=== PATIENT | male | born 1955 | race Caucasian/White ===

== ENCOUNTER 2017-07-02 00:50 | Inpatient (IN) | payer BC ==
[2017-07-02] VITALS (21 sets, daily range): BP systolic 100–138; BP diastolic 55–94
[~2017-07-02] VITALS: Ht 185.4 cm; Wt 123.6 kg
[2017-07-02] MEDS ORDERED: nitroGLYCERIN 0.4mg/hour patch TD ONE (02:50)
[2017-07-02] MEDS ORDERED: normal saline 1000ml 1,000 ML IV SCH ×2 (03:39→09:55)
[2017-07-02] MEDS ORDERED: HYDROcodone/acetaminophen 5mg/325mg tablet PO PRN (03:40)
[2017-07-02] MEDS ORDERED: ondansetron/PF 4mg/2ml inj IV PRN (03:40)
[2017-07-02] MEDS ORDERED: bisacodyl 10mg suppository rectal RC PRN (03:40)
[2017-07-02] MEDS ORDERED: magnesium hydroxide 30ml (MOM) UD suspension PO PRN (03:40)
[2017-07-02] MEDS ORDERED: diphenhydrAMINE 50 mg/ml inj IV PRN (03:40)
[2017-07-02] MEDS ORDERED: metoclopramide 5 mg/ml inj IV PRN (03:40)
[2017-07-02] MEDS ORDERED: acetaminophen 325mg tablet PO PRN (03:40)
[2017-07-02] MEDS ORDERED: diphenhydrAMINE 25mg capsule PO PRN (03:40)
[2017-07-02] MEDS ORDERED: mag hydrox/Alum hydrox/simeth 30ml oral suspension PO PRN (03:40)
[2017-07-02] MEDS ORDERED: SILD50TA PO (03:45)
[2017-07-02] MEDS ORDERED: FLUT16SP2 BOTHNARES (03:45)
[2017-07-02] MEDS ORDERED: nitroGLYCERIN 0.4mg SUBLingual tab SL PRN (03:45)
[2017-07-02] MEDS ORDERED: metoprolol tartrate 1mg/ml inj IV PRN (03:45)
[2017-07-02] MEDS ORDERED: regadenoson 0.4mg/5ml syringe IV ONE (03:45)
[2017-07-02] MEDS ORDERED: aminophylline 250mg/10ml inj. IV PRN (03:45)
[2017-07-02 04:11] LABS: ALANINE AMINOTRANSFERASE 49 U/L (12-78); ALBUMIN 3.5 G/DL (3.4-5.0); ALKALINE PHOSPHATASE 100 IU/L (46-116); ANION GAP 8 (8-16); ASPARTATE AMINO TRANSFERASE 84 U/L (10-37); BILIRUBIN,TOTAL 0.3 MG/DL (0.1-1.0); BLOOD UREA NITROGEN 18 MG/DL (7-18); BUN/CREATININE RATIO 11.5 (5.4-32.0); CALCIUM 8.7 MG/DL (8.5-10.1); CHLORIDE 107 MMOL/L (99-107); CREATININE 1.56 MG/DL (0.60-1.10); GLUCOSE 114 MG/DL (70-104); POTASSIUM 4.5 MMOL/L (3.5-5.1); SODIUM 141 MMOL/L (135-145); TOTAL CARBON DIOXIDE 25.7 MMOL/L (24-32); TOTAL PROTEIN 6.9 G/DL (6.4-8.2); eGFR 45 ML/MIN
[2017-07-02 04:22] LABS: LIPASE 202 U/L (73-393); MAGNESIUM 1.9 MG/DL (1.5-2.4)
[2017-07-02 04:27] LABS: TROPONIN I 9.71 NG/ML (0.0-0.05)
[2017-07-02 06:11] LABS: BASOPHILS # (AUTO) 0.1 X10'3 (0-0.2); BASOPHILS % (AUTO) 0.9 % (0-1); EOSINOPHILS # (AUTO) 0.2 X10'3 (0-0.9); EOSINOPHILS % (AUTO) 2.4 % (0-6); HEMATOCRIT 43.7 % (42.0-52.0); HEMOGLOBIN 14.7 g/dl (14.0-17.9); LYMPHOCYTES % (AUTO) 20.4 % (21-51); MEAN CORPUSCULAR HEMOGLOBIN 30.4 PG (27.0-31.0); MEAN CORPUSCULAR HGB CONC 33.7 % (33.0-36.5); MEAN CORPUSCULAR VOLUME 90.3 FL (78-98); MEAN PLATELET VOLUME 8.4 FL (7.4-10.4); MONOCYTES # (AUTO) 0.7 X10'3 (0-0.9); MONOCYTES % (AUTO) 7.4 % (2-12); NEUTROPHILS # (AUTO) 6.8 X10'3 (1.8-7.7); NEUTROPHILS % (AUTO) 68.9 % (42-75); PLATELET COUNT 217 X10'3 (140-440); RED BLOOD COUNT 4.84 X10'6 (4.70-6.10); RED CELL DISTRIBUTION WIDTH 13.4 % (11.5-14.5); WHITE BLOOD COUNT 9.9 X10'3 (4.5-11.0)
[2017-07-02 06:22] LABS: D-DIMER 0.34 MG/L FEU (0-0.50); PARTIAL THROMBOPLASTIN TIME 32 SECONDS (22-32)
[2017-07-02] MEDS ORDERED: enoxaparin 60mg/0.6ml syringe SUBCUT SCH (08:30)
[2017-07-02] MEDS: nitroGLYCERIN 0.2mg/hour patch TD SCH (08:49)
[2017-07-02] MEDS: pantoprazole 40mg Tablet.DR PO SCH (08:49)
[2017-07-02] MEDS: aspirin 325mg tablet PO SCH (08:50)
[2017-07-02] MEDS: docusate sod 100mg capsule PO SCH ×2 (08:50→20:00)
[2017-07-02] MEDS: metoprolol tartrate 25mg tablet PO SCH ×2 (09:55→20:00)
[2017-07-02] MEDS: acetaminophen 325mg tablet PO PRN (10:46)
[2017-07-02 11:04] LABS: CLARITY,URINE Clear (Clear); COLOR,URINE Yellow (Yellow); GLUCOSE, URINE Negative (Neg); KETONES,URINE Negative (Neg); LEUKOCYTE ESTERASE ,URINE Negative (Neg); NITRITES, URINE Negative (Neg); OCCULT BLOOD,URINE Negative (Neg); PROTEIN,URINE Trace mg/dl (Neg)
[2017-07-02 11:13] LABS: RBC,URINE NONE SEEN /HPF (0-2); UA COLLECTION TYPE CLN CATCH MIDSTREAM; WBC,URINE NONE SEEN /HPF (0-4)
[2017-07-02 11:14] LABS: BACTERIA,URINE NONE SEEN /HPF (Neg); MUCUS STRANDS NONE SEEN /LPF (Neg); SQUAMOUS EPITHELIAL CELL,UR NONE SEEN /LPF (FEW)
[2017-07-02] MEDS ORDERED: LIDOcaine 2 gm/250ml D5W 250 ML IV SCH (11:15)
[2017-07-02 11:22] LABS: URINE AMPHETAMINE SCREEN NEGATIVE (Neg); URINE BARBITUATE SCREEN NEGATIVE (Neg); URINE BENZODIAZEPINES SCREEN NEGATIVE (Neg); URINE CANNABINOID SCREEN POSITIVE (Neg); URINE COCAINE SCREEN NEGATIVE (Neg); URINE METHADONE SCREEN NEGATIVE (Neg); URINE OPIATE SCREEN POSITIVE (Neg); URINE PHENCYCLIDINE SCREEN NEGATIVE (Neg)
[2017-07-02] MEDS: HYDROcodone/acetaminophen 10/325mg tab PO PRN ×2 (14:44→20:26)
[2017-07-02] MEDS ORDERED: IOHEXOL 350 MG/ML 150 ML injection IV ONE (14:46)
[2017-07-02] MEDS ORDERED: iohexol 350 MG/ML 50ML vial IV ONE (14:46)
[2017-07-02] MEDS ORDERED: LIDOcaine 1%/PF (10mg/ml) 5ml vial ONE (14:46)
[2017-07-02] MEDS ORDERED: heparin 1,000unit/ml 10ml vial 10 ML ONE (14:46)
[2017-07-02] MEDS ORDERED: fentaNYL/PF 50MCG/1 ML 2ML syringe ONE (15:05)
[2017-07-02] MEDS ORDERED: diphenhydrAMINE 50 mg/ml inj ONE (15:05)
[2017-07-02] MEDS ORDERED: midazolam 2 mg/2 ml injection ONE ×2 (15:06→15:40)
[2017-07-02] MEDS ORDERED: tirofiban 5mg in NS 100mL 100 ML IV ONE (15:49)
[2017-07-02] MEDS: normal saline 1000ml 1,000 ML IV SCH ×2 (17:00→19:28)
[2017-07-02] MEDS ORDERED: OXAZEpam 15mg capsule PO PRN (17:05)
[2017-07-02] MEDS ORDERED: proCHLORperazine 10 MG/2 ml inj IV PRN (17:05)
[2017-07-02] MEDS ORDERED: metoprolol tartrate 25mg tablet PO SCH (20:00)
[2017-07-02] MEDS ORDERED: temazepam 15mg capsule PO PRN (21:00)
[2017-07-03] VITALS (12 sets, daily range): BP systolic 96–130; BP diastolic 54–78
[2017-07-03 06:09] LABS: BASOPHILS % (AUTO) 0.3 % (0-1); EOSINOPHILS # (AUTO) 0.2 X10'3 (0-0.9); EOSINOPHILS % (AUTO) 2.4 % (0-6); HEMATOCRIT 42.9 % (42.0-52.0); HEMOGLOBIN 14.5 g/dl (14.0-17.9); LYMPHOCYTES # (AUTO) 1.3 X10'3 (1.1-4.8); LYMPHOCYTES % (AUTO) 13.9 % (21-51); MEAN CORPUSCULAR HEMOGLOBIN 30.1 PG (27.0-31.0); MEAN CORPUSCULAR HGB CONC 33.7 % (33.0-36.5); MEAN CORPUSCULAR VOLUME 89.4 FL (78-98); MEAN PLATELET VOLUME 8.6 FL (7.4-10.4); MONOCYTES # (AUTO) 0.8 X10'3 (0-0.9); MONOCYTES % (AUTO) 8.1 % (2-12); NEUTROPHILS # (AUTO) 6.9 X10'3 (1.8-7.7); NEUTROPHILS % (AUTO) 75.3 % (42-75); PLATELET COUNT 207 X10'3 (140-440); RED CELL DISTRIBUTION WIDTH 13.5 % (11.5-14.5); WHITE BLOOD COUNT 9.2 X10'3 (4.5-11.0)
[2017-07-03 06:37] LABS: ALANINE AMINOTRANSFERASE 47 U/L (12-78); ALBUMIN 3.2 G/DL (3.4-5.0); ALKALINE PHOSPHATASE 89 IU/L (46-116); ANION GAP 7 (8-16); ASPARTATE AMINO TRANSFERASE 83 U/L (10-37); BILIRUBIN,TOTAL 0.6 MG/DL (0.1-1.0); BLOOD UREA NITROGEN 19 MG/DL (7-18); BUN/CREATININE RATIO 12.8 (5.4-32.0); CALCIUM 8.6 MG/DL (8.5-10.1); CHLORIDE 106 MMOL/L (99-107); CHOL/HDL RATIO 3.7 (0.00-4.99); CHOLESTEROL 119 MG/DL (0-200); CREATININE 1.48 MG/DL (0.60-1.10); GLUCOSE 118 MG/DL (70-104); HDL CHOLESTEROL 32 MG/DL (35-60); LDL CHOLESTEROL 68 MG/DL (50-100); POTASSIUM 4.3 MMOL/L (3.5-5.1); SODIUM 139 MMOL/L (135-145); TOTAL CARBON DIOXIDE 26.1 MMOL/L (24-32); TOTAL PROTEIN 6.5 G/DL (6.4-8.2); TRIGLYCERIDES 183 MG/DL (20-135); eGFR 48 ML/MIN
[2017-07-03] MEDS: docusate sod 100mg capsule PO SCH ×2 (08:00→20:00)
[2017-07-03] MEDS: nitroGLYCERIN 0.2mg/hour patch TD SCH (08:00)
[2017-07-03] MEDS: aspirin 325mg tablet PO SCH (08:10)
[2017-07-03] MEDS: pantoprazole 40mg Tablet.DR PO SCH (08:10)
[2017-07-03] MEDS: metoprolol tartrate 25mg tablet PO SCH ×2 (08:10→20:09)
[2017-07-03] MEDS: enoxaparin 40mg/0.4ml syringe SQ SCH (08:11)
[2017-07-03] MEDS: atorvastatin 20mg tablet PO SCH (11:24)
[2017-07-03 13:10] LABS: TRIIODOTHYRONINE (T3) 134 ng/dL (71-180)
[2017-07-03] MEDS: acetaminophen 325mg tablet PO PRN (20:09)
[2017-07-04 03:00] VITALS: BP 119/70
[2017-07-04 05:47] LABS: BASOPHILS % (AUTO) 0.3 % (0-1); EOSINOPHILS # (AUTO) 0.2 X10'3 (0-0.9); EOSINOPHILS % (AUTO) 2.1 % (0-6); HEMATOCRIT 45.9 % (42.0-52.0); HEMOGLOBIN 15.2 g/dl (14.0-17.9); LYMPHOCYTES # (AUTO) 1.5 X10'3 (1.1-4.8); LYMPHOCYTES % (AUTO) 15.5 % (21-51); MEAN CORPUSCULAR HEMOGLOBIN 29.6 PG (27.0-31.0); MEAN CORPUSCULAR HGB CONC 33.1 % (33.0-36.5); MEAN CORPUSCULAR VOLUME 89.7 FL (78-98); MEAN PLATELET VOLUME 8.4 FL (7.4-10.4); MONOCYTES # (AUTO) 0.9 X10'3 (0-0.9); MONOCYTES % (AUTO) 8.7 % (2-12); NEUTROPHILS # (AUTO) 7.3 X10'3 (1.8-7.7); NEUTROPHILS % (AUTO) 73.4 % (42-75); PLATELET COUNT 190 X10'3 (140-440); RED BLOOD COUNT 5.12 X10'6 (4.70-6.10); RED CELL DISTRIBUTION WIDTH 13.3 % (11.5-14.5); WHITE BLOOD COUNT 9.9 X10'3 (4.5-11.0)
[2017-07-04 06:00] VITALS: BP 113/71
[2017-07-04 06:15] LABS: ALANINE AMINOTRANSFERASE 41 U/L (12-78); ALBUMIN 3.3 G/DL (3.4-5.0); ALBUMIN/GLOBULIN RATIO 0.9 (1.1-1.5); ALKALINE PHOSPHATASE 91 IU/L (46-116); ANION GAP 7 (8-16); ASPARTATE AMINO TRANSFERASE 51 U/L (10-37); BILIRUBIN,TOTAL 0.9 MG/DL (0.1-1.0); BLOOD UREA NITROGEN 21 MG/DL (7-18); CHLORIDE 105 MMOL/L (99-107); GLUCOSE 119 MG/DL (70-104); SODIUM 140 MMOL/L (135-145); TOTAL CARBON DIOXIDE 27.7 MMOL/L (24-32); TOTAL PROTEIN 7.1 G/DL (6.4-8.2); eGFR 47 ML/MIN
[2017-07-04] MEDS: docusate sod 100mg capsule PO SCH ×2 (08:00→18:21)
[2017-07-04] MEDS: metoprolol tartrate 25mg tablet PO SCH ×2 (08:14→19:41)
[2017-07-04] MEDS: pantoprazole 40mg Tablet.DR PO SCH (08:15)
[2017-07-04] MEDS: aspirin 325mg tablet PO SCH (08:15)
[2017-07-04] MEDS: atorvastatin 20mg tablet PO SCH (08:15)
[2017-07-04] MEDS: enoxaparin 40mg/0.4ml syringe SQ SCH (08:16)
[2017-07-04 11:00] VITALS: BP 117/74
[2017-07-04 15:00] VITALS: BP 121/73
[2017-07-04] MEDS ORDERED: amLODIPine 2.5mg tablet PO ONE (16:00)
[2017-07-04 19:00] VITALS: BP 135/78
[2017-07-04 23:16] VITALS: BP 120/80
[2017-07-05 03:01] VITALS: BP 102/65
[2017-07-05 05:20] LABS: BASOPHILS % (AUTO) 0.4 % (0-1); EOSINOPHILS # (AUTO) 0.3 X10'3 (0-0.9); EOSINOPHILS % (AUTO) 2.7 % (0-6); HEMATOCRIT 45.1 % (42.0-52.0); HEMOGLOBIN 15.1 g/dl (14.0-17.9); LYMPHOCYTES # (AUTO) 1.6 X10'3 (1.1-4.8); LYMPHOCYTES % (AUTO) 15.9 % (21-51); MEAN CORPUSCULAR HEMOGLOBIN 29.7 PG (27.0-31.0); MEAN CORPUSCULAR HGB CONC 33.5 % (33.0-36.5); MEAN CORPUSCULAR VOLUME 88.7 FL (78-98); MEAN PLATELET VOLUME 8.6 FL (7.4-10.4); MONOCYTES % (AUTO) 9.2 % (2-12); NEUTROPHILS # (AUTO) 7.4 X10'3 (1.8-7.7); NEUTROPHILS % (AUTO) 71.8 % (42-75); PLATELET COUNT 193 X10'3 (140-440); RED BLOOD COUNT 5.08 X10'6 (4.70-6.10); RED CELL DISTRIBUTION WIDTH 13.2 % (11.5-14.5); WHITE BLOOD COUNT 10.3 X10'3 (4.5-11.0)
[2017-07-05 05:47] LABS: ALANINE AMINOTRANSFERASE 55 U/L (12-78); ALBUMIN 3.4 G/DL (3.4-5.0); ALBUMIN/GLOBULIN RATIO 0.9 (1.1-1.5); ALKALINE PHOSPHATASE 96 IU/L (46-116); ANION GAP 11 (8-16); ASPARTATE AMINO TRANSFERASE 42 U/L (10-37); BILIRUBIN,TOTAL 0.7 MG/DL (0.1-1.0); BLOOD UREA NITROGEN 30 MG/DL (7-18); BUN/CREATININE RATIO 19.7 (5.4-32.0); CALCIUM 9.2 MG/DL (8.5-10.1); CHLORIDE 104 MMOL/L (99-107); CREATININE 1.52 MG/DL (0.60-1.10); GLUCOSE 117 MG/DL (70-104); SODIUM 140 MMOL/L (135-145); TOTAL CARBON DIOXIDE 25.5 MMOL/L (24-32); TOTAL PROTEIN 7.3 G/DL (6.4-8.2); eGFR 47 ML/MIN
[2017-07-05 06:00] VITALS: BP 116/71
[2017-07-05] MEDS: metoprolol tartrate 25mg tablet PO SCH (07:34)
[2017-07-05] MEDS: pantoprazole 40mg Tablet.DR PO SCH (07:34)
[2017-07-05] MEDS: atorvastatin 20mg tablet PO SCH (07:34)
[2017-07-05] MEDS: docusate sod 100mg capsule PO SCH (07:34)
[2017-07-05] MEDS: enoxaparin 40mg/0.4ml syringe SQ SCH (07:35)
[2017-07-05] MEDS: aspirin 325mg tablet PO SCH (07:35)
[2017-07-05] MEDS ORDERED: amLODIPine 2.5mg tablet PO SCH (08:00)
[2017-07-05 11:00] VITALS: BP 125/80
[2017-07-05] MEDS ORDERED: METO25TA6 PO (13:01)
[2017-07-05] MEDS ORDERED: NITR0.4T51 SL (13:01)
[2017-07-05] MEDS ORDERED: PANT40TA4 PO (13:01)
[2017-07-05] MEDS ORDERED: ATOR20TA66 PO (13:01)
[2017-07-05] MEDS ORDERED: ASPI-611 PO (13:01)
[2017-07-05] MEDS ORDERED: LISI-604 PO (13:01)
== END 2017-07-05 14:35 | disposition home or self-care (01) | DRG 281 ==
LOC: PCU 3S 00:50
PROVIDERS: ADMIT Family Medicine; ATTEND Family Medicine
PROC: 4A023N7 Measurement of Cardiac Sampling and Pressure, Left Heart, Percutaneous Approach (ICD-10-PCS; principal; 2017-07-04)
PROC: B2111ZZ Fluoroscopy of Multiple Coronary Arteries using Low Osmolar Contrast (ICD-10-PCS; 2017-07-04)
PROC: B2151ZZ Fluoroscopy of Left Heart using Low Osmolar Contrast (ICD-10-PCS; 2017-07-04)
PROC: B41J1ZZ Fluoroscopy of Other Lower Arteries using Low Osmolar Contrast (ICD-10-PCS; 2017-07-04)
PROC: 02JA3ZZ Inspection of Heart, Percutaneous Approach (ICD-10-PCS; 2017-07-04)
DX: I21.4 Non-ST elevation (NSTEMI) myocardial infarction (principal); I47.2 Ventricular tachycardia; E03.9 Hypothyroidism, unspecified; I10 Essential (primary) hypertension; E66.9 Obesity, unspecified; E78.5 Hyperlipidemia, unspecified; G47.33 Obstructive sleep apnea (adult) (pediatric); I12.9 Hypertensive chronic kidney disease with stage 1 through stage 4 chronic kidney disease, or unspecified chronic kidney disease; I25.119 Atherosclerotic heart disease of native coronary artery with unspecified angina pectoris; I25.5 Ischemic cardiomyopathy; N18.9 Chronic kidney disease, unspecified; Z88.1 Allergy status to other antibiotic agents; Z88.6 Allergy status to analgesic agent; Z79.899 Other long term (current) drug therapy; Z68.36 Body mass index [BMI] 36.0-36.9, adult; Z82.49 Family history of ischemic heart disease and other diseases of the circulatory system
CPT/HCPCS: 36415; 80053; 80061; 80305; 81001; 83690; 83735; 83880; 84439; 84443; 84479; 84480; 84484; 85025; 85379; 85610; 85730; 87070; 93005; 93458; 99152; 99153; A4620; A6257; C1760; C1769; J0280; J1200; J1644; J1650; J2001; J2250; J2270; J2785; J3010; J3246; J7030; Q9967

== ENCOUNTER 2018-03-02 09:46 | Day surgery (SDC) | payer BC ==
[2018-02-25 13:59] LABS: BASOPHILS # (AUTO) 0.1 X10'3 (0-0.2); BASOPHILS % (AUTO) 1.2 % (0-1); EOSINOPHILS # (AUTO) 0.3 X10'3 (0-0.9); EOSINOPHILS % (AUTO) 3.4 % (0-6); HEMATOCRIT 42.3 % (42.0-52.0); HEMOGLOBIN 14.2 g/dl (14.0-17.9); LYMPHOCYTES # (AUTO) 1.5 X10'3 (1.1-4.8); LYMPHOCYTES % (AUTO) 17.8 % (21-51); MEAN CORPUSCULAR HEMOGLOBIN 29.9 PG (27.0-31.0); MEAN CORPUSCULAR HGB CONC 33.6 % (33.0-36.5); MEAN CORPUSCULAR VOLUME 89.1 FL (78-98); MEAN PLATELET VOLUME 8.1 FL (7.4-10.4); MONOCYTES # (AUTO) 0.7 X10'3 (0-0.9); NEUTROPHILS # (AUTO) 5.8 X10'3 (1.8-7.7); NEUTROPHILS % (AUTO) 69.6 % (42-75); PLATELET COUNT 216 X10'3 (140-440); RED BLOOD COUNT 4.75 X10'6 (4.70-6.10); RED CELL DISTRIBUTION WIDTH 13.4 % (11.5-14.5); WHITE BLOOD COUNT 8.3 X10'3 (4.5-11.0)
[2018-02-25 14:10] LABS: PARTIAL THROMBOPLASTIN TIME 26 SECONDS (22-32); PROTHROMBIN TIME 10.1 SECONDS (9.0-12.0)
[2018-02-25 14:15] LABS: ALANINE AMINOTRANSFERASE 28 U/L (12-78); ALBUMIN 3.5 G/DL (3.4-5.0); ALKALINE PHOSPHATASE 138 IU/L (46-116); ANION GAP 7 (8-16); ASPARTATE AMINO TRANSFERASE 14 U/L (10-37); BILIRUBIN,TOTAL 0.5 MG/DL (0.1-1.0); BLOOD UREA NITROGEN 19 MG/DL (7-18); BUN/CREATININE RATIO 11.7 (5.4-32.0); CALCIUM 9.1 MG/DL (8.5-10.1); CHLORIDE 107 MMOL/L (99-107); CREATININE 1.63 MG/DL (0.60-1.10); GLUCOSE 153 MG/DL (70-104); POTASSIUM 4.4 MMOL/L (3.5-5.1); SODIUM 143 MMOL/L (135-145); TOTAL CARBON DIOXIDE 28.6 MMOL/L (24-32); TOTAL PROTEIN 7.1 G/DL (6.4-8.2); eGFR 43 ML/MIN
[2018-03-02] VITALS (13 sets, daily range): BP systolic 104–136; BP diastolic 57–76
[~2018-03-02] VITALS: Ht 182.9 cm; Wt 127.6 kg
[~2018-03-02 09:46] MED LIST: ATOR20TA66 PO; FLUT16SP2 BOTHNARES; LISI-604 PO; METO25TA6 PO; NITR0.4T51 SL; PANT40TA4 PO; SILD50TA PO
[2018-03-02] MEDS ORDERED: midazolam 2 mg/2 ml injection ONE (09:55)
[2018-03-02] MEDS ORDERED: iohexol 350 MG/ML 50ML vial IV ONE (09:56)
[2018-03-02] MEDS ORDERED: fentaNYL/PF 50MCG/1 ML 2ML syringe ONE ×2 (09:56→10:51)
[2018-03-02] MEDS ORDERED: iohexol 350MG/ML 100ml bottle IV ONE (09:56)
[2018-03-02] MEDS ORDERED: LIDOcaine 1% 30ml preserv. free vial ONE (09:56)
[2018-03-02] MEDS ORDERED: nitroGLYCERIN 0.4mg SUBLingual tab SL PRN (10:00)
[2018-03-02] MEDS ORDERED: diphenhydrAMINE 25mg capsule PO PRN (10:00)
[2018-03-02] MEDS ORDERED: LORazepam 0.5 MG tablet PO PRN (10:00)
[2018-03-02] MEDS ORDERED: TICA90TA PO (10:07)
[2018-03-02] MEDS ORDERED: ASPI81TA52 PO (10:07)
[2018-03-02] MEDS ORDERED: PANT-47 PO (10:07)
[2018-03-02] MEDS ORDERED: METO25TA6 PO (10:07)
[2018-03-02] MEDS ORDERED: NITR0.4T51 SL (10:07)
[2018-03-02] MEDS ORDERED: ATOR20TA PO (10:07)
[2018-03-02] MEDS ORDERED: LISI40TA4 PO (10:07)
[2018-03-02] MEDS: normal saline 1000ml 1,000 ML IV SCH ×2 (10:26→13:51)
[2018-03-02] MEDS ORDERED: OXAZEpam 15mg capsule PO PRN (11:35)
[2018-03-02] MEDS ORDERED: HYDROcodone/acetaminophen 10/325mg tab PO PRN (11:35)
[2018-03-02] MEDS ORDERED: ondansetron/PF 4mg/2ml inj IV PRN (11:35)
[2018-03-02] MEDS ORDERED: HYDROcodone/acetaminophen 5mg/325mg tablet PO PRN (11:35)
[2018-03-02] MEDS ORDERED: normal saline 1000ml 1,000 ML IV SCH (11:35)
[2018-03-02] MEDS ORDERED: proCHLORperazine 10 MG/2 ml inj IV PRN (11:35)
== END 2018-03-02 19:15 | disposition home or self-care (01) ==
LOC: SSTAY O 09:46
PROVIDERS: ATTEND Internal Medicine Cardiovascular Disease
DX: I25.10 Atherosclerotic heart disease of native coronary artery without angina pectoris (principal); E78.5 Hyperlipidemia, unspecified; I25.2 Old myocardial infarction; I12.9 Hypertensive chronic kidney disease with stage 1 through stage 4 chronic kidney disease, or unspecified chronic kidney disease; N18.3 Chronic kidney disease, stage 3 (moderate); N40.0 Benign prostatic hyperplasia without lower urinary tract symptoms; G47.33 Obstructive sleep apnea (adult) (pediatric); E66.9 Obesity, unspecified; Z79.82 Long term (current) use of aspirin; Z88.6 Allergy status to analgesic agent; Z88.1 Allergy status to other antibiotic agents; Z95.5 Presence of coronary angioplasty implant and graft; Z90.49 Acquired absence of other specified parts of digestive tract; Z72.89 Other problems related to lifestyle; Z87.891 Personal history of nicotine dependence; Z68.38 Body mass index [BMI] 38.0-38.9, adult; Z88.8 Allergy status to other drugs, medicaments and biological substances; Z79.899 Other long term (current) drug therapy; Z98.890 Other specified postprocedural states; Z82.49 Family history of ischemic heart disease and other diseases of the circulatory system
CPT/HCPCS: 36415; 71046; 80053; 85025; 85610; 85730; 93005; 93458; 99152; 99153; A6257; C1760; C1769; J1644; J2250; J3010; J3490; J7030; Q0163; Q9967; A4620